=== PATIENT | male | born 1960 | race Caucasian/White ===

== ENCOUNTER 2020-10-27 09:50 | Outpatient (CLI) | payer BC ==
[2020-10-27 18:20] LABS: SARS-CoV-2 PCR by NAA Not Detected (NotDetected)
== END 2020-10-27 09:51 | disposition home or self-care (01) ==
LOC: CSHLAB 09:50
PROVIDERS: ATTEND Internal Medicine Gastroenterology
DX: Z20.822 Contact with and (suspected) exposure to COVID-19 (principal); Z12.11 Encounter for screening for malignant neoplasm of colon
CPT/HCPCS: 87635; U0003; U0005

== ENCOUNTER 2020-10-30 05:55 | Day surgery (SDC) | payer BC ==
[2020-10-29 11:57] VITALS: BMI 24.7
[2020-10-30] MEDS ORDERED: Lidocaine 1% MPF 2 ML VIAL ONE (06:11)
[2020-10-30] MEDS ORDERED: PROPOFOL 40 ML ONE (07:10)
[2020-10-30] MEDS ORDERED: Lidocaine 1% PF 5 ML VIAL ONE (07:11)
[2020-10-30] MEDS ORDERED: PROPOFOL 20 ML ONE (08:08)
== END 2020-10-30 09:25 | disposition home or self-care (01) ==
LOC: CSHSDC 05:55
PROVIDERS: ATTEND Internal Medicine Gastroenterology
DX: Z12.11 Encounter for screening for malignant neoplasm of colon (principal); K63.5 Polyp of colon; I10 Essential (primary) hypertension; E78.5 Hyperlipidemia, unspecified; Z85.46 Personal history of malignant neoplasm of prostate
CPT/HCPCS: 88305; J2704

== ENCOUNTER 2023-05-09 05:41 | Day surgery (SDC) | payer BC ==
[2023-05-05 15:05] VITALS: BMI 25.0
[2023-05-09] MEDS ORDERED: PROPOFOL 40 ML ONE (07:56)
[2023-05-09] MEDS ORDERED: Lidocaine 1% PF 5 ML VIAL ONE (07:56)
[2023-05-09] MEDS ORDERED: PHENYLEPHRINE-NS 100 MCG/ML 10 ML SYRINGE ONE (07:57)
[2023-05-09] MEDS ORDERED: PROPOFOL 20 ML ONE (08:25)
== END 2023-05-09 09:07 | disposition home or self-care (01) ==
LOC: CSHSDC 05:41
PROVIDERS: ATTEND Internal Medicine Gastroenterology
PROC: 0DBL8ZX Excision of Transverse Colon, Via Natural or Artificial Opening Endoscopic, Diagnostic (ICD-10-PCS; principal; 2023-05-09)
PROC: 0DBH8ZX Excision of Cecum, Via Natural or Artificial Opening Endoscopic, Diagnostic (ICD-10-PCS; principal; 2023-05-09)
PROC: 0DBN8ZX Excision of Sigmoid Colon, Via Natural or Artificial Opening Endoscopic, Diagnostic (ICD-10-PCS; principal; 2023-05-09)
PROC: 0DBP8ZX Excision of Rectum, Via Natural or Artificial Opening Endoscopic, Diagnostic (ICD-10-PCS; principal; 2023-05-09)
PROC: 0DBM8ZX Excision of Descending Colon, Via Natural or Artificial Opening Endoscopic, Diagnostic (ICD-10-PCS; principal; 2023-05-09)
DX: Z12.11 Encounter for screening for malignant neoplasm of colon (principal); K51.90 Ulcerative colitis, unspecified, without complications; I10 Essential (primary) hypertension; Z86.010 Personal history of colon polyps; Z79.899 Other long term (current) drug therapy
CPT/HCPCS: 88305; J2704

== ENCOUNTER 2024-05-15 05:55 | Day surgery (SDC) | payer BC ==
[2024-05-04 09:48] VITALS: BMI 28.2
[2024-05-15] MEDS ORDERED: Bupivacaine HCl 0.5%/Epinephrine 1:200,000/PF 30 ml Vial ONE (06:49)
[2024-05-15] MEDS ORDERED: PROPOFOL 20 ML ONE (07:04)
[2024-05-15] MEDS ORDERED: Lidocaine 2% PF 5 ML VIAL ONE (07:05)
[2024-05-15] MEDS ORDERED: fentaNYL 50 mcg/mL 1 mL Vial ONE ×2 (07:08→07:43)
[2024-05-15] MEDS ORDERED: CEFAZOLIN 2 GM VIAL ONE (07:16)
[2024-05-15] MEDS ORDERED: ePHEDrine Sulfate 50 MG/10 ML VIAL ONE (07:38)
[2024-05-15] MEDS ORDERED: Ondansetron PF 4 MG/2 ML Vial ONE (07:40)
[2024-05-15] MEDS ORDERED: PHENYLEPHRINE-NS 100 MCG/ML 10 ML SYRINGE ONE (07:50)
[2024-05-15] MEDS ORDERED: Dexamethasone 20 MG/5 ML VIAL ONE (07:55)
[2024-05-15] MEDS ORDERED: Vasopressin 20 UNITS/ML VIAL ONE (07:59)
== END 2024-05-15 09:50 | disposition home or self-care (01) ==
LOC: CSHSDC 05:55
PROVIDERS: ATTEND Surgery
PROC: 0JB40ZZ Excision of Right Neck Subcutaneous Tissue and Fascia, Open Approach (ICD-10-PCS; principal; 2024-05-15)
DX: D17.0 Benign lipomatous neoplasm of skin and subcutaneous tissue of head, face and neck (principal); D36.0 Benign neoplasm of lymph nodes; I10 Essential (primary) hypertension; E78.5 Hyperlipidemia, unspecified; K21.9 Gastro-esophageal reflux disease without esophagitis; G47.33 Obstructive sleep apnea (adult) (pediatric); F17.220 Nicotine dependence, chewing tobacco, uncomplicated; Z85.46 Personal history of malignant neoplasm of prostate; Z90.79 Acquired absence of other genital organ(s); Z98.890 Other specified postprocedural states; Z88.8 Allergy status to other drugs, medicaments and biological substances; Z79.899 Other long term (current) drug therapy
CPT/HCPCS: 88305; C1713; J1100; J2405; J2704; J3010